=== PATIENT | female | born 1990 | race Two or more races ===

== ENCOUNTER 2017-04-03 18:55 | Emergency (ER) | payer MEDICAID ==
[~2017-04-03] VITALS: Ht 160 cm; Wt 61.7 kg
[2017-04-03 19:09] VITALS: BP 108/69
== END 2017-04-04 00:17 | disposition left against medical advice (07) ==
LOC: ER 18:55
DX: R50.9 Fever, unspecified (principal); Z53.21 Procedure and treatment not carried out due to patient leaving prior to being seen by health care provider

== ENCOUNTER 2017-11-20 06:16 | Emergency (ER) | payer MEDICAID ==
[~2017-11-20] VITALS: Ht 160 cm; Wt 61.2 kg
[2017-11-20 07:14] VITALS: BP 120/64
[2017-11-20] MEDS ORDERED: KETOROLAC TROMETH 60MG/2ML VIAL IM ONE (07:30)
== END 2017-11-20 08:14 | disposition home or self-care (01) ==
LOC: ER 06:17
DX: S29.011A Strain of muscle and tendon of front wall of thorax, initial encounter (principal); M62.830 Muscle spasm of back; Z88.0 Allergy status to penicillin; X58.XXXA Exposure to other specified factors, initial encounter; Y93.89 Activity, other specified; Y92.240 Courthouse as the place of occurrence of the external cause; Y99.8 Other external cause status
CPT/HCPCS: 71046; 81002; 96372; 99284; J1885

== ENCOUNTER 2020-01-26 17:35 | Emergency (ER) | payer MEDICAID ==
[~2020-01-26] VITALS: Ht 160 cm; Wt 59.0 kg
[2020-01-26 19:42] LABS: Basophils # (auto) 0 10 ^3/uL (0-0.2); Basophils % (auto) 0.4 % (0.0-2.0); Eosinophils # (auto) 0.1 10 ^3/uL (0-0.8); Eosinophils % (auto) 0.5 % (0.0-7.0); Hematocrit 42.1 % (36.0-46.0); Hemoglobin 14.4 g/dL (12.2-16.2); Lymphocytes # (auto) 1.9 10 ^3/uL (0.4-5.4); Lymphocytes % (auto) 18.7 % (10.0-50.0); Mean Corpuscular Hemoglobin 29.9 pg (28.0-32.0); Mean Corpuscular Hgb Conc. 34.2 g/dL (32.0-36.0); Mean Corpuscular Volume 87.5 fL (80.0-100.0); Monocytes # (auto) 0.4 10 ^3/uL (0-1.3); Monocytes % (auto) 4.3 % (0.0-12.0); Neutrophils # (auto) 7.8 10 ^3/uL (1.6-8.6); Neutrophils % (auto) 76.1 % (37.0-80.0); Nucleated Red Blood Cells % 0.2 %; Platelet Count (auto) 243 10^3/uL (140-450); Red Blood Cells 4.81 10^6/uL (4.0-5.20); Red Cell Distribution Width 14.2 % (11.8-14.3); White Blood Cell 10.3 10^3/uL (4.4-10.8)
[2020-01-26 20:01] LABS: Albumin 4.1 g/dL (3.4-5.0); Calcium 8.8 mg/dL (8.5-10.1); Potassium 3.6 mmol/L (3.5-5.1)
[2020-01-26 20:06] LABS: BUN/Creatinine Ratio 13.8; Bilirubin, Total 0.3 mg/dL (0.2-1.0); Total Protein 7.6 g/dL (6.4-8.2)
[2020-01-27 01:19] LABS: Urine Bacteria MANY /hpf (None Seen); Urine Blood Negative /uL (Negative); Urine Mucus FEW (None Seen); Urine Specific Gravity 1.018 (1.001-1.035); Urine WBC 4 /hpf (0 - 5)
[2020-01-27] MEDS ORDERED: ACETAMINOPHEN 325 MG TAB PO ONE (03:30)
[2020-01-27 04:00] VITALS: BP 96/62
== END 2020-01-27 04:30 | disposition home or self-care (01) ==
LOC: ER 17:35
DX: N39.0 Urinary tract infection, site not specified (principal); Z88.0 Allergy status to penicillin
CPT/HCPCS: 36415; 71250; 74176; 80053; 81001; 82150; 83690; 84702; 85025